=== PATIENT | female | born 2000 | race Caucasian/White ===

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

== ENCOUNTER 2020-02-02 08:10 | Emergency (ER) | payer OTHER ==
[2020-02-02 08:18] VITALS: BP 111/59
--- NOTE | 2020-02-02 08:20 | ER Document Report ---
HPI - HPI Patient complains to provider of: Rash Time Seen by Provider: 02/02/20 08:19 Pain Level: 0 Notes: 19-year-old female to the emergency department with complaints of a rash all over that began about a month ago and has not gotten better. She states she did go see her primary care physician who gave her steroids and it did not improve the rash. States that she has a rash between her fingers and on her chest and back. She states it is intensely itchy. She is been taking Benadryl with very little effect. She states that she recently moved in with her father but nobody else has a rash. She denies any other possible contacts. She denies any change in her detergents, lotions, toiletries, diet. She denies any shortness of breath, tongue swelling, facial swelling, throat closing, chest pain. - ROS Systems Reviewed and Negative: Yes All other systems reviewed and negative - CONSTITUTIONAL Constitutional: DENIES: Fever, Chills - EENT EENT: DENIES: Sore Throat, Ear Pain - NEURO Neurology: DENIES: Headache - CARDIOVASCULAR Cardiovascular: DENIES: Chest pain - RESPIRATORY Respiratory: DENIES: Trouble Breathing, Coughing - GASTROINTESTINAL Gastrointestinal: DENIES: Abdominal Pain, Nausea, Patient vomiting, Diarrhea - URINARY Urinary: DENIES: Dysuria - DERM Skin Color: Normal Skin Problems: Rash - see hpi Past Medical History - General Information source: Patient - Social History Smoking Status: Never Smoker Chew tobacco use (# tins/day): No Frequency of alcohol use: None Drug Abuse: None Family History: Reviewed & Not Pertinent Patient has homicidal ideation: No Renal/ Medical History: Denies: Hx Peritoneal Dialysis - Immunizations Immunizations up to date: Yes Vertical Provider Document - CONSTITUTIONAL Agree With Documented VS: Yes General Appearance: WD/WN, No Apparent Distress - INFECTION CONTROL TRAVEL OUTSIDE OF THE [place] IN LAST 30 DAYS: No - HEENT HEENT: Atraumatic, Normocephalic, PERRLA - NECK Neck: Normal Inspection, Supple - RESPIRATORY Respiratory: Breath Sounds Normal, No Respiratory Distress. negative: Rales, Rhonchi, Wheezing - CARDIOVASCULAR Cardiovascular: Regular Rate, Regular Rhythm, No Murmur - GI/ABDOMEN Gastrointestinal: Abdomen Soft, Abdomen Non-Tender - BACK Back: negative: CVA Tenderness-Right, CVA Tenderness-Left - MUSCULOSKELETAL/EXTREMETIES Musculoskeletal/Extremeties: MAEW, FROM, Non-Tender - NEURO Level of Consciousness: Awake, Alert, Appropriate Motor/Sensory: negative: No Motor Deficit, No Sensory Deficit - DERM Integumentary: Warm, Rash - there is a erythematous papular rash in between the webbing of the fingers as well as to the chest wall, back, legs. mild excoriations. no desquamation, no vesicles, no super imposed infection, no eschars, no necrosis. Course - Re-evaluation Re-evalutation: 02/02/20 08:33 Impression: rash suspicious for Scabies. Patient with intensely itchy rash that began over a month ago. Concerning for scabies given the appearance and the findings within the webbing of her fingers. Steroids have not worked for her and Benadryl has not been completely effective. Will write for permethrin as well as Atarax. We will also send her to see a recreation program coordinator. Patient agrees with the plan. - Vital Signs Vital signs: Temp Pulse Resp BP Pulse Ox 97.8 F 71 16 111/59 L 99 02/02/20 08:15 02/02/20 08:15 02/02/20 08:15 02/02/20 08:15 02/02/20 08:15 Discharge - Discharge Clinical Impression: Scabies, Dermatitis Condition: Stable Disposition: HOME, SELF-CARE Instructions: Scabies ([facility] [place]) Additional Instructions: Follow-up with recreation program coordinator without fail. Use permethrin cream as directed. Return if any worsening symptoms such as fever, spreading rash, any other concerning symptoms. Prescriptions: Permethrin [Acticin 5% Cream 60 gm] 30 gm TP ONCE PRN #60 gm PRN Reason: Hydroxyzine HCl [Atarax 10 mg Tablet] 20 mg PO Q6H PRN #20 tablet PRN Reason: Forms: Return to Work Referrals: ZE CASTRO DO [ACTIVE STAFF] - Follow up in 3-5 days (for dermatology follow up)
== END 2020-02-02 08:40 | disposition home or self-care (01) ==
LOC: ER 08:10
DX: B86 Scabies (principal); L30.9 Dermatitis, unspecified
CPT/HCPCS: 99283